=== PATIENT | female | born 1950 | race Caucasian/White ===

== ENCOUNTER → 2019-07-31 | Outpatient (CLI) | payer MEDICARE, OTHER ==
[~2019-07-31] MED LIST: CATHETER FLUSH 10 ML SYR IV PRN
--- NOTE | 2019-07-31 14:34 | Diagnostic Imaging Report ---
INDICATION: Epigastric pain. TECHNIQUE: Patient was administered 5.3 mCi technetium 99m Choletec intravenously and imaging over the abdomen was performed. At 45 minutes, patient ingested 8 ounces of Ensure and a gallbladder ejection fraction was calculated. FINDINGS: There is homogeneous uptake of activity by the liver. Prompt excretion of activity into the common duct and gallbladder is seen. There is normal passage of activity into the small bowel. There does appear to be some activity in the stomach consistent with bile reflux. Gallbladder ejection fraction is normal at 77%. IMPRESSION: 1. Patent cystic duct and common bile duct. 2. Normal gallbladder ejection fraction of 77%. 3. Findings consistent with bile reflux into the stomach. Dictated by: Dictated on workstation # [id number]
== END ==
LOC: CARD 11:57
PROVIDERS: ATTEND Surgery
DX: R10.13 Epigastric pain (principal)
CPT/HCPCS: 78227

== ENCOUNTER 2020-06-02 08:37 | Emergency (ER) | payer MEDICARE, OTHER ==
[2020-06-02 08:40] VITALS: BP 137/69
[2020-06-02] MEDS ORDERED: diphenhydrAMINE 50 MG/ML INJ (BENADRYL) IM STA (08:59)
[2020-06-02] MEDS ORDERED: PRD20T PO (09:14)
--- NOTE | 2020-06-02 09:14 | ED General ---
General Chief Complaint: Allergic Reaction Stated Complaint: FACIAL SWELLING;ITCHY THROAT Source of Information: Patient History of Present Illness Date Seen by Provider: Jun 02, 2020 Time Seen by Provider: 08:40 Initial Comments 70-year-old female presenting with allergic reaction causing facial swelling and itching. She states that she had eaten some squash last night from [place] that was a new food for her. She is unaware of anything else new in her environment or any new food products. She has no difficulty breathing. She has redness, swelling, itching to her neck and face. She denies any wheezing or difficulty breathing. She has no difficulty swallowing. She has not tried taking any medicine. She states that the symptoms started shortly after eating the squash last night. Allergies and Home Medications Allergies Coded Allergies: No Allergy Information Available (Unverified , 07/31/19) Home Medications Prednisone 20 Mg Tab, 40 MG PO DAILY Prescribed by: CHRISTINA ALVAREZ on 06/02/20 0914 Patient Home Medication List Home Medication List Reviewed: Yes Review of Systems Review of Systems Constitutional: No chills, No dizziness, No fever EENTM: No ear discharge, No ear pain, No blurred vision, No double vision, No hoarseness, No mouth pain, No mouth swelling, No epistaxis, No nose congestion, No throat pain, No throat swelling Respiratory: No cough, No stridor, No wheezing Cardiovascular: no symptoms reported Gastrointestinal: no symptoms reported Genitourinary: no symptoms reported Musculoskeletal: no symptoms reported Skin: see HPI Psychiatric/Neurological: No Symptoms Reported Hematologic/Lymphatic: No Symptoms Reported Immunological/Allergic: food allergy (apparent food allergy to the squash she ate last night) Past Wshodwq-Pxywcm-Qhartu Hx Past Med/Social Hx: Reviewed Nursing Past Med/Soc Hx Patient Social History Alcohol Use: Occasionally Uses (wine) Alcohol Beverage of Choice: Wine Recreational Drug Use: No Smoking Status: Never a Smoker 2nd Hand Smoke Exposure: No Recent Foreign Travel: No Contact w/Someone Who Travel: No Recent Infectious Disease Expo: No Recent Hopitalizations: No Physical Abuse: No Sexual Abuse: No Mistreated: No Fear: No Seasonal Allergies Seasonal Allergies: Yes Past Medical History Respiratory: No Cardiac: No Neurological: No Reproductive Disorders: No Genitourinary: No Gastrointestinal: No Musculoskeletal: No Endocrine: No HEENT: No Cancer: No Psychosocial: No Physical Exam Vital Signs Capillary Refill : Height, Weight, BMI Height: '" Weight: lbs. oz. kg; BMI Method: General Appearance: No Apparent Distress, WD/WN HEENT: PERRL/EOMI, TMs Normal, Pharynx Normal, Other (erythema with hives, swelling to face and neck) Neck: Full Range of Motion, Non Tender, Supple Respiratory: Chest Non Tender, Lungs Clear, Normal Breath Sounds, No Accessory Muscle Use, No Respiratory Distress; No Stridor, No Wheezing Cardiovascular: Regular Rate, Rhythm, Normal Peripheral Pulses Extremity: Normal Capillary Refill, No Pedal Edema Neurologic/Psychiatric: Alert, Oriented x3, No Motor/Sensory Deficits, Normal Mood/Affect, visitor services coordinator II-XII Norm as Tested Skin: Warm/Dry, Erythema (with swelling and hives to face, neck) Progress/Results/Core Measures Suspected Sepsis SIRS Temperature: Pulse: Respiratory Rate: Blood Pressure / Mean: Results/Orders My Orders Orders - CHRISTINA ALVAREZ MD Dexamethasone Injection (Decadron Inje (06/02/20 08:59) Diphenhydramine Injection (Benadryl Inje (06/02/20 08:59) Vital Signs/I&O Capillary Refill : Progress Note : Progress Note presume this is a reaction to the squash since she does not know of any other new foods or environmental exposures. Will treat with decadron and benadryl shots here then continue with prednisone and benadryl by mouth for next 3 days. Check with pcp for continued concerns. Departure Impression Primary Impression: Allergic reaction Qualified Codes: T78.40XA - Allergy, unspecified, initial encounter Additional Impression: Facial swelling Disposition: 01 HOME, SELF-CARE Condition: Stable Departure-Patient Inst. Decision time for Depature: 09:10 Referrals: [facility] (PCP) Primary Care Physician EDWIGE DELGADO APRN (Family) Primary Care Physician Patient Instructions: Food Allergy Add. Discharge Instructions: Continue with Prednisone daily for next few days to help treat the allergic re action. Your next dose would be due Sunday 06/03 since you had a shot today. Take Benadryl (Diphenhydramine) 25-50 mg every 4 hours as needed for redness, swelling and itching for the next 3-5 days until your symptoms clear. Check back with your regular provider for continued concerns. Avoid eating more of the squash that was a new food for you last night as it is the most likely culprit for you to cause your reaction. All discharge instructions reviewed with patient and/or family. Voiced understanding. Scripts Prednisone (Prednisone) 20 Mg Tab 40 MG PO DAILY for allergic reaction for 3 Days, #6 TAB 0 Refills Prov: CHRISTINA ALVAREZ MD 06/02/20 CHRISTINA ALVAREZ MD Jun 02, 2020 09:14
== END 2020-06-02 09:30 | disposition home or self-care (01) ==
LOC: EDUNIT# 08:37 → ER FS 08:38
DX: T78.1XXA Other adverse food reactions, not elsewhere classified, initial encounter (principal); R22.0 Localized swelling, mass and lump, head; R22.1 Localized swelling, mass and lump, neck; Z79.52 Long term (current) use of systemic steroids
CPT/HCPCS: 99284

== ENCOUNTER → 2020-11-06 | Outpatient (CLI) | payer SELFPAY ==
[~2020-11-06] MED LIST changes: -CATHETER FLUSH 10 ML SYR IV PRN; +PRD20T PO
--- NOTE | 2020-11-06 12:56 | Diagnostic Imaging Report ---
EXAMINATION: CT calcium scoring without contrast. TECHNIQUE: Multiple contiguous axial images were obtained through the chest without the use of intravenous contrast for purposes of calcium scoring. All CT scans use one or more of the following dose optimizing techniques: automated exposure control, MA and/or KvP adjustment based on a patient size and exam type, or iterative reconstruction. HISTORY: Hyperlipidemia, elevated blood pressure. COMPARISON: None available. FINDINGS: The calculated coronary artery calcium score is zero. There is no edema or pneumonia. No pleural effusion. No pneumothorax. No suspicious nodules. Heart size is normal. No pericardial effusion. Aorta is normal in caliber. There is no axillary or supraclavicular lymphadenopathy. There is no mediastinal lymphadenopathy. There is a small hiatal hernia. Limited views of the upper abdomen are unremarkable. There are no suspicious osseous lesions. IMPRESSION: 1. Calculated coronary artery calcium score of zero. Dictated by: Dictated on workstation # [id number]
== END ==
LOC: RAD FS 09:59
PROVIDERS: ATTEND Nurse Practitioner Family
DX: E78.5 Hyperlipidemia, unspecified (principal); R03.0 Elevated blood-pressure reading, without diagnosis of hypertension
CPT/HCPCS: 75571